=== PATIENT | male | born 1950 | race Caucasian/White ===

== ENCOUNTER 2019-09-14 17:27 | Emergency (ER) | payer OTHER ==
[~2019-09-14] VITALS: Ht 165.1 cm; Wt 61.2 kg
[2019-09-14 18:16] LABS: ABSOLUTE BASOPHILS 0.1 thou/uL (0.0-0.2); ABSOLUTE EOSINOPHILS 0.1 thou/uL (0.0-0.7); ABSOLUTE LYMPHOCYTES 2.3 thou/uL (0.8-5.3); ABSOLUTE MONOCYTES 0.7 thou/uL (0.0-1.2); ABSOLUTE NEUTROPHILS 4.6 thou/uL (1.6-8.1); EOSINOPHILS 1.2 %; HEMATOCRIT 40.8 % (42.0-52.0); HEMOGLOBIN 14.1 gm/dL (14.0-18.0); LYMPHOCYTES 29.6 %; MCH 31.5 pg (26.0-34.0); MCHC 34.6 g/dL (28.0-37.0); MCV 91.3 fL (80.0-100.0); MPV 9.2 fl. (7.2-11.1); NUCLEATED RBCS 0 /100WBC; PLATELET COUNT* 116 thou/uL (150-400); POLYS 59.2 %; RBC 4.47 mil/uL (4.50-6.00); WBC 7.8 thou/uL (4.0-11.0)
[2019-09-14 18:28] LABS: INR 1.1; PROTIME 10.9 Seconds (9.20-11.50)
[2019-09-14 18:34] LABS: ALBUMIN 4.1 g/dL (3.4-5.0); TOTAL BILIRUBIN 0.5 mg/dL (<0.1-1.0); TOTAL PROTEIN 7.5 g/dL (6.4-8.2)
[2019-09-14 18:38] LABS: CALCIUM 8.9 mg/dL (8.5-10.1)
[2019-09-14] MEDS ORDERED: MEDROLDOSEPACK PO (19:00)
[2019-09-14 19:19] VITALS: BP 130/70
--- NOTE | 2019-09-15 08:46 | EKG ---
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
== END 2019-09-14 19:20 | disposition home or self-care (01) ==
LOC: M.ERS 17:27
PROVIDERS: Personal Emergency Response Attendant
DX: G51.0 Bell's palsy (principal); I10 Essential (primary) hypertension; E78.5 Hyperlipidemia, unspecified; Z86.73 Personal history of transient ischemic attack (TIA), and cerebral infarction without residual deficits